=== PATIENT | male | born 1945 | race Caucasian/White ===

== ENCOUNTER 2018-10-16 11:43 | Emergency (ER) | payer OTHER ==
[~2018-10-16] VITALS: Ht 170.2 cm; Wt 75.3 kg
[2018-10-16] MEDS ORDERED: TOPROL XL25 MG PO (11:48)
[2018-10-16] MEDS ORDERED: SYNTHROID25 MC1 PO (11:49)
[2018-10-16 12:30] VITALS: BP 139/77
== END 2018-10-16 12:31 | disposition home or self-care (01) ==
LOC: M.ERS 11:43
DX: S71.111A Laceration without foreign body, right thigh, initial encounter (principal); W26.8XXA Contact with other sharp object(s), not elsewhere classified, initial encounter; Y93.89 Activity, other specified; Y92.89 Other specified places as the place of occurrence of the external cause; Y99.8 Other external cause status